=== PATIENT | male | born 1985 | race Caucasian/White ===

== ENCOUNTER 2018-02-17 00:39 | Emergency (ER) | payer SELFPAY, OTHER ==
[2018-02-17] MEDS: DIPHTH/TET/ACEL PERTUSS (ADULT) 0.5 ML VIAL IM* (04:28)
== END 2018-02-17 04:42 | disposition home or self-care (01) ==
LOC: FTE 00:39
DX: S41.112A Laceration without foreign body of left upper arm, initial encounter (principal); W25.XXXA Contact with sharp glass, initial encounter; Y92.9 Unspecified place or not applicable; Z23 Encounter for immunization
CPT/HCPCS: 12001; 90471; 90715; 99283-25

== ENCOUNTER 2018-02-24 21:31 | Emergency (ER) | payer SELFPAY, OTHER | END 2018-02-25 02:17 | disposition home or self-care (01) | LOC: FTE 21:31 | DX: F43.10 Post-traumatic stress disorder, unspecified (principal); F41.9 Anxiety disorder, unspecified; S45.012 Laceration of axillary artery, left side; X58.XXXD Exposure to other specified factors, subsequent encounter | CPT/HCPCS: 99281 ==